=== PATIENT | female | born 1995 | race Two or more races ===

== ENCOUNTER 2017-08-07 16:54 | Emergency (ER) | payer MEDICAID ==
[~2017-08-07] VITALS: Ht 175.3 cm; Wt 54.4 kg
[2017-08-07 16:59] VITALS: BP 99/65
[2017-08-07] MEDS ORDERED: TETRACAINE HCL/PF 0.5% UD 2 ML BOTTLE ONE (17:31)
[2017-08-07] MEDS ORDERED: FLUORESCEIN SODIUM OPHTH 1 EA STRIP ONE (17:31)
--- NOTE | 2017-08-07 18:01 | NUR ---
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
== END 2017-08-07 18:42 | disposition home or self-care (01) ==
LOC: ER 16:57
DX: B02.30 Zoster ocular disease, unspecified (principal)
CPT/HCPCS: A4606; Z7610